=== PATIENT | male | born 1970 | race African-American/Black ===

== ENCOUNTER 2024-11-12 11:06 | Emergency (ER) | payer OTHER, SELFPAY ==
--- NOTE | ~2024-11-12 | XR_ITS ---
XR chest 2V Ordering provider: Karo Rivas NP History: 54 years Male with . cough some dyspnea with exertion . Comparison: July 01, 2023 FINDINGS: MEDIASTINUM: The cardiac silhouette is not enlarged. Prominent jonh. LUNGS: No effusions or pneumothorax. Prominent markings in the perihilar areas and lower lobes which may indicate bronchitis versus early pneumonia. OTHER: No free air under the diaphragm. Degenerative changes of the spine. IMPRESSION: Prominent markings which may indicate bronchitis versus early pneumonia. Follow-up advised. Reviewed, dictated and finalized at location A. IMPRESSION: Prominent markings which may indicate bronchitis versus early pneumonia. Follow -up advised.
[2024-11-12 11:08] VITALS: BP 184/115; PULSE 104; RESP 24; TEMP 36.4; O2SAT 99
--- OUTSIDE RECORDS SUMMARY | 2024-11-12 11:14 | XMS_ITS | Clinical Summary ---
Author Organization [facility] Address [facility] [place] [address] Care Team Providers Care Software Solutions Architect Name Role Phone Cristian Gongora MD Primary Care Provider [phone] Swetha Zamorano RN Unavailable Unavailable Amanda Seay MD Unavailable [phone] Allergies No known active allergies Medications aspirin 81 MG chewable tablet Chew 1 tablet (81 mg total) by mouth daily. 30 tablet 11/25/2018 Active carvedilol 3.125 MG tablet Take 1 tablet (3.125 mg total) by mouth 2 (two) times daily. 60 tablet 11 02/10/2019 Active FUROSEMIDE 40 MG tablet Take 1 tablet by mouth twice daily 60 tablet 12/20/2019 Active sacubitril-valsa rtan (ENTRESTO) 97-103 MG tablet Take 1 tablet by mouth 2 (two) times daily. 180 tablet 3 01/29/2020 Active Active Problems Problem Noted Date Diagnosed Date Hypertension, essential 12/08/2018 Left ventricular systolic dysfunction 11/22/2018 Abnormal ECG 11/22/2018 Obesity, Class II, BMI 35-39.9 11/22/2018 Snoring 11/22/2018 H/O congestive heart failure 11/21/2018 Family History Medical History Relation Comments Diabetes Father Heart Disease Maternal Grandfather Diabetes Mother Heart Disease Paternal Grandfather Relation Status Comments Brother 1 Alive Brother 2 Alive Brother 3 Alive Brother 4 Father Alive Maternal Grandfather Maternal Grandmother Mother Paternal Grandfather Paternal Grandmother Sister 1 Alive Sister 2 Alive Sister 3 Alive Sister 4 Alive Social History Tobacco Use Types Packs/Day Years Used Date Smoking Tobacco: Never Smokeless Tobacco: Never Alcohol Use Standard Drinks/Week Comments Yes 0 (1 standard drink = 0.6 oz pur e alcohol) casual Sex and Gender Information Value Date Recorded Sex Assigned at Not on file Legal Sex Male 1:10 PM CDT Gender Identity Not on file Sexual Orientation Not on file Last Filed Vital Signs Vital Sign Reading Time Taken Comments Blood Pressure 128/94 02/27/2019 1:49 PM CDT Pulse 75 02/27/2019 1:37 PM CDT ekg Temperature 36.9 C (98.4 F) 11/24/2018 3:54 AM CDT Respiratory Rate 16 02/27/2019 1:37 PM CDT Oxygen Saturation 97% 11/24/2018 3:54 AM CDT Inhaled Oxygen Concentration - - Weight 118 kg (260 lb 3.2 oz) 02/27/2019 1:37 PM CDT Height 175.3 cm (5' 9 ) 02/27/2019 1:37 PM CDT Body Mass Index 38.42 02/27/2019 1:37 PM CDT Plan of Treatment Health Maintenance Due Date Last Done Comments Colorectal Cancer Screening Colonoscopy (10 Years) 1971 Annual Physical 1974 Hepatitis C 1989 DTaP, Tdap and Td Vaccines ( 1 - Tdap) 1990 Hepatitis B Vaccines (1 of 3 - 19+ 3-dose series) 1990 Zoster Vaccines (1 of 2) 2021 COVID-19 Vaccine ( - 2023-2 5 season) 2024 Influenza Adult (#1) 2024 Meningococcal B Vaccine Aged Out No l onger eligible based on patient's age to complete this topic Meningococcal Vaccine Aged Out No rylan tiffanie eligible based on patient's age to complete this topic Pneumococcal Vaccine: Pediat rics (0 to 5 Years) and At-Risk Patients (6 to 64 Years) Aged Out No longer eligible b ased on patient's age to complete this topic RSV Immunizations Under 20 Months Aged Out No longer eligible based on patient's age to complete this topic Insurance [facility] Member Subscriber Plan / Payer ( fective 2016-Present) Name:Greg Aponte Relation to Subscriber:Self Name:Greg Aponte Payer ID:Not on file Type:[facility] Address: [address] [place] [id number] [facility] Member Subscriber Plan / Payer ( fective 2016-Present) Name:Greg Aponte Relation to Subscriber:Self Name:Greg Aponte Payer ID:Not on file Type:[facility] Address: [address] [place] [phone] Advance Directives Documents on File Type Date Recorded Patient Equipment Maint Tech Expl anation Advance Directives and Living Will 11/22/2018 6:52 AM 11/21/18 [place] [employer]M POWER OF CONDUIT CLEANER FOR HEALTH CARE * Full Code (Latest Code Status on File) Date Activated Date Inactivated Comments 11/22/2018 1:42 PM 11/24/2018 4:25 PM * Full Code Date Activated Date Inactivated Comments 11/21/2018 5:44 PM 11/22/2018 1:42 PM Care Teams Software Solutions Architect Relationship Specialty Start Date End Date Cristian Gongora MD PCP - General FAMILY PRACTICE 11/24/18 Swetha Zamorano RN Care Manager (Ambulatory) REGISTERED NURSE 11/26/18 Amanda Seay MD [address] [place] [id number] [place] Airline Attendant CARDIOVASCULAR DISEASE 12/05/18
--- OUTSIDE RECORDS SUMMARY | 2024-11-12 11:14 | XMS_ITS | Encounter Summary ---
Author Organization [facility] Address [address] [place] [address] Care Team Providers Care Blood Typer Name Role Phone Cristian Gongora MD Primary Care Provider [phone] Swetha Zamorano RN Unavailable Unavailable Amanda Seay MD Unavailable [phone] Encounter Details Date Type Department Care Team (Late st Contact Info) Description 01/09/2019 Abstract [facility] [address] [place] [phone] Abstract, Doc [facility] Social History Tobacco Use Types Packs/Day Years Used Date Smoking Tobacco: Never Smokeless Tobacco: Never Alcohol Use Standard Drinks/Week Comments Yes 0 (1 standard drink = 0.6 oz pur e alcohol) casual Sex and Gender Information Value Date Recorded Sex Assigned at Not on file Legal Sex Male 1:10 PM CDT Gender Identity Not on file Sexual Orientation Not on file documented as of this encounter Functional Status * RETIRED Are you deaf or do you have serious difficulty hearing Answer Date of Assessment Author Status No 11/24/2018 12:13 PM CDT Acti ve * RETIRED Are you blind or do you have serious difficulty seeing, even when wearing glasses? Answer Date of Assessment Author Status No 11/24/2018 12:13 PM CDT Acti ve * Do you have serious difficulty walking or climbing stairs? Answer Date of Assessment Author Status No 11/24/2018 12:13 PM CDT Marva Mustafa RN Active * Do you have difficulty dressing or bathing? Answer Date of Assessment Author Status No 11/24/2018 12:13 PM Marva Gilliam RN Active * Because of a physical, mental, or emotional condition, do you have difficulty doing errands alone such as visiting a doctor's office or shopping? Answer Date of Assessment Author Status No 11/24/2018 12:13 PM Marva Gilliam RN Active documented as of this encounter Mental Status * Because of a physical, mental, or emotional condition, do you have serious difficulty concentrating, remembering, or making decisions? Answer Entry Date Author Status No 11/24/2018 12:13 PM Marva Gilliam RN Active documented in this encounter Plan of Treatment Not on file documented as of this encounter Procedures Procedure Name Priority Date/Time Associated Diagnosis Comments CBC (OUTSIDE LAB) Routine 12/30/2018 documented in this encounter Results * CBC (OUTSIDE LAB) (12/30/2018) WBC 6.7 HGB 15.7 HCT 46.2 PLT 301 12/30/2018 us Doc [facility] Abstract LAB-OUTSIDE/ABSTRACTED Final Result documented in this encounter Visit Diagnoses Not on filedocumented in this encounter Care Teams Blood Typer Relationship Specialty Start Date End Date Cristian Gongora MD PCP - General FAMILY PRACTICE 11/24/18 Swetha Zamorano RN Care Manager (Ambulatory) REGISTERED NURSE 11/26/18 Amanda Seay MD [address] [place] [phone] [place] Customer Service Teller CARDIOVASCULAR DISEASE 12/05/18 documented as of this encounter
--- OUTSIDE RECORDS SUMMARY | 2024-11-12 11:14 | XMS_ITS | Encounter Summary ---
Author Organization [facility] Address [facility] [place] [address] Care Team Providers Care Huller Operator Name Role Phone Cristian Gongora MD Primary Care Provider [phone] Swetha Zamorano RN Unavailable Unavailable Amanda Seay MD Unavailable [phone] Encounter Details Date Type Department Care Team (Late st Contact Info) Description 12/16/2018 Abstract [facility] [address] [place] [address] Amanda Seay MD [address] [place] [address] Social History Tobacco Use Types Packs/Day Years [...] 12:13 PM Marva Gilliam RN Active * Do you have difficulty [...] Procedure Name Priority Date/Time Associated Diagnosis Comments BASIC METABOLIC PANEL Routine 12/13/2018 documented in this encounter Results * BASIC METABOLIC PANEL (12/13/2018) SODIUM S/P/B 139 POTASSIUM S/P/B 4.5 CO2 24 CHLORIDE S/P/B 98 GLUCOSE 124 mg/dL CALCIUM S/P/B 9.3 BUN 24 CREATININE S/P/B 1.18 0.7 - 1.3 EGFR AFR. AMER. 20 EGFR NON-AFR. AMER. 84 <=90 12/13/2018 us Doc [facility] Abstract LABORATORY Final Result documented in this encounter Visit Diagnoses Not on filedocumented in this encounter Care Teams Huller Operator Relationship Specialty Start Date End Date Cristian Gongora MD PCP - General FAMILY PRACTICE 11/24/18 Swetha Zamorano RN Care Manager (Ambulatory) REGISTERED NURSE 11/26/18 Amanda Seay MD [address] [place] [address] [place] Supervisor Of Research CARDIOVASCULAR DISEASE 12/05/18 documented as of this encounter
--- OUTSIDE RECORDS SUMMARY | 2024-11-12 11:14 | XMS_ITS | Encounter Summary ---
Author Organization [facility] Address [facility] [place] [address] Care Team Providers Care Log Snaker Name Role Phone Cristian Gongora MD Primary Care Provider [phone] Swetha Zamorano RN Unavailable Unavailable Amanda Seay MD Unavailable [phone] Encounter Details Date Type Department Care Team (Late st Contact Info) Description 12/16/2018 Abstract [facility] [address] [place] [address] Amanda Seay MD [address] [place] [address] Social History Tobacco Use Types [...] 1.18 0.7 - 1.3 EGFR AFR. AMER. 84 EGFR NON-AFR. AMER. 73 <=90 BUN CREATININE RATIO 20 12/13/2018 us Doc [facility] Abstract LABORATORY Final Result documented in this encounter Visit Diagnoses Not on filedocumented in this encounter Care Teams Log Snaker Relationship Specialty Start Date End Date Cristian Gongora MD PCP - General FAMILY PRACTICE 11/24/18 Swetha Zamorano RN Care Manager (Ambulatory) REGISTERED NURSE 11/26/18 Amanda Seay MD [address] [place] [address] [place] [employer]idential Air Sealing Technician CARDIOVASCULAR DISEASE 12/05/18 documented as of this encounter
[2024-11-12 11:22] VITALS: BP 181/117
--- NOTE | 2024-11-12 11:24 | ED.URI ---
HPI - URI/Sore Throat General Chief Complaint: Upper Respiratory Infection Stated Complaint: Cough/Chest Congestion Time Seen by Provider: 11/12/24 11:20 Source: patient, RN notes reviewed and old records reviewed Mode of arrival: ambulatory Limitations: no limitations History of Present Illness HPI Narrative: 54 year old male presents to express care with complaints of cough since september that won't completely resolve. Patient reports that he has been taking some Theraflu and Vicks Vapor Rub with no known fevers. Patient reports that he has had productive cough of some brownish mucous and he also states occasional some pink. Patient denies any frothy sputum, reports was told 6 years ago that he had some CHF and he took Lasix and Entresto and saw Dr Mendoza from [facility] and took that for a couple years. Patient reports that he lost 60 pounds and has not been on any cardiac medications since. Today his blood pressure is elevated and manual readings running 180/100. Talked with patient about going to ED and states that he does not want to go, states he will call [facility] tomorrow in [place] and get appointment.Patient reports no peripheral edema states he weighs daily. MD elicited complaint: cough and other (shortness of breath with exertion some discomfort left upper back.) Pertinent past history: other (reports was told he had CHF 6 years ago took meds 2 years lost 60 lbs, no meds for 4) Onset (ago): week(s) (cough since mid September better but continues with some SOB with activity) Severity: moderate Able to tolerate fluids by mouth: Yes Treatments prior to arrival: other (Theraflu and Vicks) Related Data Allergies Allergy/AdvReac Type Severity Reaction Status Date / Time No Known Allergies Allergy Verified 11/12/24 11:18 Review of Systems Review of Systems: CONSTITUTIONAL: Denies malaise, chills, sweats, or fever. EYES: Denies visual changes, redness, or discharge. ENT: Reports rhinorrhea, congestion, no sinus pain, no otalgia and no sore throat. CARDIOVASCULAR: Denies chest pain, palpitations, or edema. RESPIRATORY: Reports cough.? Reports some dyspnea with exertion. GASTROINTESTINAL: Denies abdominal pain, nausea, vomiting, diarrhea SKIN: Denies rash or itching. MUSCULOSKELETAL: Denies myalgia. NEUROLOGIC: Denies headache. All systems reviewed & are unremarkable except as noted in HPI and below PMFSH Past Medical History Medical History (Updated 11/13/24 @ 16:51 by Karo Rivas NP) Obesity CHF (congestive heart failure) Social History Social History (Updated 11/13/24 @ 16:42 by Karo Rivas NP) Smoking status: Former smoker Alcohol intake: current Alcohol use details: rare Substance use type: does not use Living arrangements: with family Gender identity (if verbalized by the patient): Male Comments At time of signature, agree with nursing past medical, surgical, social and family history. There is no relevant family history pertinent to the presenting complaint Exam Narrative: GENERAL: Well-appearing, well-nourished, and in no acute distress. HEAD: Normocephalic EYES: PERRLA, conjunctivae clear ENT: Nares clear, turbinates edematous and erythematous, clear discharge. Mucous membranes moist. TM pearly hoffman with dull light reflex bilaterally; no tragal tenderness. Oropharynx erythematous without lesions. Tonsils not enlarged and without exudate, no drooling, no hoarseness, no trismus, uvula midline. NECK: Supple. No lymphadenopathy CHEST: Decreased to bases on auscultation, breath sounds equal. No wheezing, rhonchi, rales, or stridor. No respiratory distress, speaks in full sentences.cough noted at times productive, SAO2 99% on room air admits to some shortness of breath with exertion HEART: Regular rate and rhythm. No murmur heard. SKIN: Warm, dry, no rash. NEURO: Alert and oriented x3. PSYCH: Normal mood and affect Course Course Emergency Course: Patient is aware of diagnosis, understands and agrees to treatment plan.? Anticipatory guidance given.? Patient agrees to follow-up as directed and is aware of reasons to seek care at the emergency department.Patient reports will call [facility] in [place] for follow up appointment tomorrow. Portions of this record may have been created with voice recognition software Level of Care: Express Care Visit Vital Signs Vital signs: Vital Signs Temperature 36.4 C 11/12/24 11:08 Pulse Rate 104 H 11/12/24 11:08 Respiratory Rate 24 H 11/12/24 11:08 Blood Pressure 184/115 H 11/12/24 11:08 Pulse Oximetry 99 11/12/24 11:08 Temperature 36.4 C 11/12/24 11:08 Pulse Rate 104 H 11/12/24 11:08 Respiratory Rate 24 H 11/12/24 11:08 Blood Pressure 181/117 H 11/12/24 11:22 Pulse Oximetry 99 11/12/24 11:08 Reviewed MDM - URI/Sore Throat MDM Narrative Medical decision making narrative: Differential diagnosis considered: Robb virus, strep pharyngitis, allergic rhinitis, upper respiratory tract infection, sinusitis, rhinosinusitis, nasopharyngitis. viral pharyngitis, otitis media, otitis externa, pneumonia, bronchitis, viral cough syndrome, viral syndrome, and influenza.? Exam findings show no acute concerns or changes; patient is non-toxic appearing and is in no distress.? Patient is appropriate for outpatient treatment and follow-up. Differential Diagnosis Differential diagnosis: Likely upper respiratory infection, viral infection, bronchitis and other (pneumonia, ) Medical Records Attestation: I reviewed the patient's medical records. Lab Data Attestation: I reviewed the patient's lab results. Imaging Data Attestation: I personally reviewed and interpreted this imaging study as follows: My impression: Prominent markings which may indicate bronchitis versus early pneumonia hilar area Radiologist's impression: [place] [id number] XRay Report Signed Patient: Greg Aponte : 1970 MR#: [id number] Age: 54 Acct:[id number] Loc: [facility] ADM Date: 11/12/24Attending Dr: Ordering Physician: Karo Rivas APRN Date of Service: 11/12/24 Procedure(s): XR chest 2V Accession Number(s): [id number] cc: WHIPPED TOPPING MIXER PHYSICIAN; Karo Rivas APRN~ XR chest 2V Ordering provider: Karo Rivas NP History: 54 years Male with . cough some dyspnea with exertion . Comparison: July 01, 2023 FINDINGS: MEDIASTINUM: The cardiac silhouette is not enlarged. Prominent jonh. LUNGS: No effusions or pneumothorax. Prominent markings in the perihilar areas and lower lobes which may indicate bronchitis versus early pneumonia. OTHER: No free air under the diaphragm. Degenerative changes of the spine. IMPRESSION: Prominent markings which may indicate bronchitis versus early pneumonia. Follow-up advised. Reviewed, dictated and finalized at location A. Please be advised this is a medical document. It is intended for [id number] communication. It is written in medical language and may contain unfamiliar abbreviations or verbiage. Medical documents are intended to carry relevant information, facts as evident, and the clinical opinion of the practitioner at the time of the encounter. This report may have been done utilizing a voice recognition system. Attempts have been made to correct errors. However, there may be uncorrected grammatical, spelling, and recognition errors present. The file time of this note does not necessarily represent the time of service. Dictated By: Roberto Miranda MD 11/12/24 1147 Signed By: <Electronically signed by Roberot Miranda MD in OV> Critical Care Time Critical Care Time Critical Care Time: No Discharge Plan Discharge Clinical Impression: Pneumonia Qualifiers: Pneumonia type: due to unspecified organism Laterality: bilateral Lung location: lower lobe of lung Qualified Code(s): J18.9 - Pneumonia, unspecified organism Patient Disposition: Home, Self-Care Condition: Stable Instructions: Antibiotic Form, Pneumonia (ED) Additional Instructions: Increase fluids especially juices and water [id number] cough and cold medicine of your choice for your symptoms Cough tablets as directed for cough--do not bite, chew or suck on--swallow whole Mucinex daily for congestion Continue your inhaler/nebulizer as directed Steroids as directed--take with food heat to the face 20-30 minutes 4-6 times a day for pain Salt water gargles, throat lozenges or throat sprays as desired Antibiotic as directed--finished the medication Patient to make appointment with cardiology for further follow up If your symptoms persist, change or worsen significantly before you can contact your personal physician then please, without delay, go to the emergency department for further evaluation. Follow-up with PCP in 7-10 days or sooner if needed Follow up with PCP soon in regards to your blood pressure which is elevated above threshold for referral. Blood pressure above 120/80 may indicate pre-hypertension. Patient Language: Malay Prescriptions: New azithromycin 250 mg tablet See Rx Instructions .ROUTE .COMPLEX Qty: 6 0RF Rx Instructions: For 250 mg dose pack: take 500 mg today (day 1), then 250 mg for 4 days (days 2-5) amoxicillin-pot clavulanate 875-125 mg tablet 1 tablet PO Q12H Qty: 20 0RF prednisone 20 mg tablet 40 mg PO DAILY Qty: 10 0RF Rx Instructions: daily for 5 days albuterol sulfate [Ventolin HFA] 90 mcg/actuation HFA aerosol inhaler 2 puff inhalation QID PRN (Reason: shortness of breath or wheezing) Qty: 6.7 0RF Follow-up/Referrals: PHYSICIAN,WHIPPED TOPPING MIXER [Primary Care Provider] - Time of Disposition: 12:11 Quality [place] Coma Scale Eyes: Open Verbal: Oriented and Alert Motor: Follows Commands Sami Coma Total Score: 15
--- NOTE | 2024-11-12 12:14 | PC.NURSE ---
bp recheck right arm 183/118, hr 102, and pulse ox 96% ra. aware of need for further f/u.
== END 2024-11-12 12:20 | disposition home or self-care (01) ==
PROVIDERS: Emergency Provider Registered Nurse
DX: J18.9 Pneumonia, unspecified organism (principal); Z87.891 Personal history of nicotine dependence; I50.9 Heart failure, unspecified; E66.9 Obesity, unspecified; Z68.36 Body mass index [BMI] 36.0-36.9, adult
CPT/HCPCS: 71046; 99203; G0463